=== PATIENT | male | born 1955 | race Caucasian/White ===

== ENCOUNTER → 2016-11-01 | Outpatient (CLI) | payer MEDICARE, OTHER ==
[2016-11-01 08:54] LABS: ALANINE AMINOTRANSFERASE 31 U/L (21-72); ALBUMIN 4.1 g/dL (3.5-5.0); ALKALINE PHOSPHATASE 68 U/L (38-126); ASPARTATE AMINO TRANSFERASE 20 U/L (17-59); BILIRUBIN,DIRECT 0.3 mg/dL (0.0-0.4); BILIRUBIN,TOTAL 1.2 mg/dL (0.2-1.3); TOTAL PROTEIN 6.6 g/dL (6.3-8.2)
== END ==
LOC: OD 07:35
PROVIDERS: ATTEND Internal Medicine Cardiovascular Disease
DX: R94.5 Abnormal results of liver function studies (principal)
CPT/HCPCS: 36415; 80076

== ENCOUNTER 2016-11-27 12:02 | Emergency (ER) | payer OTHER, MEDICARE ==
--- NOTE | 2016-11-27 15:01 | ER Document Report ---
HPI - HPI Patient complains to provider of: fall, rib pain Onset: Other - sunday, two days ago Onset/Duration: Sudden Quality of pain: Achy, Sharp Pain Level: 4 Exacerbated by: Deep breathing Relieved by: Remaining still Similar symptoms previously: No Recently seen / treated by doctor: No - CARDIOVASCULAR Cardiovascular: DENIES: Chest pain - DERM Skin Color: Normal Past Medical History - Social History Smoking Status: Never Smoker Chew tobacco use (# tins/day): No Frequency of alcohol use: Social Drug Abuse: None Family History: Reviewed & Not Pertinent Patient has suicidal ideation: No Patient has homicidal ideation: No - Past Medical History Cardiac Medical History: Reports: Hx Hypertension Renal/ Medical History: Reports: Hx Kidney Stones. Denies: Hx Peritoneal Dialysis Past Surgical History: Reports: Hx Appendectomy, Hx Orthopedic Surgery - Immunizations Hx Diphtheria, Pertussis, Tetanus Vaccination: Yes Vertical Provider Document - CONSTITUTIONAL Agree With Documented VS: Yes Exam Limitations: No Limitations General Appearance: WD/WN, No Apparent Distress - INFECTION CONTROL TRAVEL OUTSIDE OF THE [place] IN LAST 30 DAYS: No - HEENT HEENT: Atraumatic, Normocephalic - NECK Neck: Normal Inspection, Other - Full range of motion no spinous process tenderness, paraspinous muscle tenderness, no evidence of deformities or step- offs. - RESPIRATORY Respiratory: Breath Sounds Normal, No Respiratory Distress. negative: Chest Non -Tender - Tender over the anterior aspect of the ribs underlying the left breast area no evidence of crepitus, flail chest. O2 Sat by Pulse Oximetry: 97 - CARDIOVASCULAR Cardiovascular: Regular Rate, Regular Rhythm, No Murmur - MUSCULOSKELETAL/EXTREMETIES Musculoskeletal/Extremeties: MAEW, FROM, Non-Tender, No Edema - NEURO Level of Consciousness: Awake, Alert, Appropriate - DERM Integumentary: Warm, Dry, No Rash. negative: Laceration Course - Re-evaluation Re-evalutation: 11/27/16 16:50 Patient is a 61-year-old male who is hemodynamic stable, no acute distress and afebrile. X-ray shows 2 nondisplaced fractures of the seventh and eighth rib. Patient educated on incentive spirometry and told to follow-up with his primary care physician. - Vital Signs Vital signs: Temp Pulse Resp BP Pulse Ox 98.6 F 66 20 126/79 H 97 11/27/16 12:16 11/27/16 12:16 11/27/16 12:16 11/27/16 12:16 11/27/16 12:16 - Diagnostic Test Radiology reviewed: Image reviewed, Reports reviewed Discharge - Discharge Clinical Impression: Rib fractures Qualifiers: Encounter type: initial encounter Rib fracture type: multiple ribs Fracture type: closed Laterality: left Qualified Code(s): S22.42XA - Multiple fractures of ribs, left side, initial encounter for closed fracture Condition: Good Disposition: HOME, SELF-CARE Instructions: Ice Packs ([facility]), Warm Packs ([facility]), Rib Injuries and Fractures ( [facility]) Additional Instructions: How to use the incentive spirometer Sit on the edge of your bed if possible, or sit up as far as you can in bed. Hold the incentive spirometer in an upright position. Place the mouthpiece in your mouth and seal your lips tightly around it. Breathe in slowly and as deeply as possible. Notice the yellow piston rising toward the top of the column. The yellow indicator should reach the blue outlined area. Hold your breath as long as possible. Then exhale slowly and allow the piston to fall to the bottom of the column. Rest for a few seconds and repeat steps one to five at least 10 times every hour. Position the yellow indicator on the left side of the spirometer to show your best effort. Use the indicator as a goal to work toward during each slow deep breath. After each set of 10 deep breaths, cough to be sure your lungs are clear. If you have an incision, support your incision when coughing by placing a pillow firmly against it. Once you are able to get out of bed safely, take frequent walks and practice the cough. Prescriptions: Hydrocodone/Acetaminophen [[place] 5-325 Tablet] 1 each PO Q6HP PRN #20 tablet PRN Reason: Ibuprofen [Motrin 800 mg Tablet] 800 mg PO Q8H PRN #30 tab PRN Reason: Referrals: JEISON SANDHU MD [Primary Care Provider] - Follow up as needed
--- NOTE | 2016-11-27 15:12 | RADIOLOGY REPORT (SQ) ---
EXAM DESCRIPTION: RIBS LEFT W/PA CHEST COMPLETED DATE/TIME: 11/27/2016 2:53 pm REASON FOR STUDY: fall, rib pain COMPARISON: None. TECHNIQUE: Frontal view of the chest and additional views of the left ribs acquired. NUMBER OF VIEWS: Four views LIMITATIONS: None. FINDINGS: FRONTAL CXR: No pneumothorax. No pleural effusion. No atelectasis or infiltrates. RIBS: Nondisplaced fractures of the 7th and 8th ribs are suggested. OTHER: No other significant finding. IMPRESSION: There appear to be nondisplaced fractures of the anterior left 7th and 8th ribs. COMMENT: SITE OF TRAUMA/COMPLAINT MARKED/STAMP COMPLETED: NO. TECHNICAL DOCUMENTATION: JOB ID: [id number] [employer] All Rights Reserved
[2016-11-27] MEDS ORDERED: HYDROCODONE/ACETAMINOPHEN 5-325 MG TABLET PO ONE (15:39)
[2016-11-27 15:55] VITALS: BP 135/89
== END 2016-11-27 15:55 | disposition home or self-care (01) ==
LOC: ER 12:02
DX: S22.42XA Multiple fractures of ribs, left side, initial encounter for closed fracture (principal); R07.81 Pleurodynia; W19.XXXA Unspecified fall, initial encounter; I10 Essential (primary) hypertension
CPT/HCPCS: 99283

== ENCOUNTER → 2017-02-06 | Outpatient (CLI) | payer MEDICARE, OTHER ==
[2017-02-06 09:31] LABS: ALANINE AMINOTRANSFERASE 36 U/L (21-72); ALBUMIN 4.3 g/dL (3.5-5.0); ALKALINE PHOSPHATASE 77 U/L (38-126); ANION GAP 10 (5-19); ASPARTATE AMINO TRANSFERASE 25 U/L (17-59); BILIRUBIN,DIRECT 0.3 mg/dL (0.0-0.4); BLOOD UREA NITROGEN 14 mg/dL (7-20); CALCIUM 10.5 mg/dL (8.4-10.2); CARBON DIOXIDE 29 mmol/L (22-30); CHLORIDE 99 mmol/L (98-107); CHOLESTEROL 123.17 mg/dL (0-200); CREATININE RESULT 0.91 mg/dL (0.52-1.25); Direct HDL 63 mg/dL (>40); GLUCOSE 107 mg/dL (75-110); MAGNESIUM 2.1 mg/dL (1.6-2.3); POTASSIUM 4.2 mmol/L (3.6-5.0); SODIUM 137.8 mmol/L (137-145); TRIGLYCERIDES 86 mg/dL (<150)
[2017-02-06 09:41] LABS: DIRECT LDL 45 mg/dL (<100)
== END ==
LOC: OD 08:17
PROVIDERS: ATTEND Internal Medicine Cardiovascular Disease
DX: R94.5 Abnormal results of liver function studies (principal); Z79.899 Other long term (current) drug therapy; E78.00 Pure hypercholesterolemia, unspecified; E55.9 Vitamin D deficiency, unspecified
CPT/HCPCS: 36415; 80048; 80061; 80076; 82306; 83735

== ENCOUNTER → 2017-05-03 | Outpatient (CLI) | payer MEDICARE, OTHER ==
[2017-05-03 11:31] LABS: ALANINE AMINOTRANSFERASE 53 U/L (21-72); ALBUMIN 4.3 g/dL (3.5-5.0); ALKALINE PHOSPHATASE 64 U/L (38-126); ANION GAP 13 (5-19); ASPARTATE AMINO TRANSFERASE 33 U/L (17-59); BILIRUBIN,DIRECT 0.6 mg/dL (0.0-0.4); BILIRUBIN,TOTAL 1.2 mg/dL (0.2-1.3); BLOOD UREA NITROGEN 13 mg/dL (7-20); CARBON DIOXIDE 28 mmol/L (22-30); CHLORIDE 97 mmol/L (98-107); CREATININE RESULT 0.85 mg/dL (0.52-1.25); GLUCOSE 101 mg/dL (75-110); POTASSIUM 4.1 mmol/L (3.6-5.0); SODIUM 138.3 mmol/L (137-145); TOTAL PROTEIN 6.7 g/dL (6.3-8.2)
== END ==
LOC: OD 09:10
PROVIDERS: ATTEND Internal Medicine Cardiovascular Disease
DX: N18.3 Chronic kidney disease, stage 3 (moderate) (principal); R94.5 Abnormal results of liver function studies
CPT/HCPCS: 36415; 80048; 80076

== ENCOUNTER → 2017-08-03 | Outpatient (CLI) | payer MEDICARE, OTHER ==
[2017-08-03 09:32] LABS: ALANINE AMINOTRANSFERASE 39 U/L (21-72); ALBUMIN 4.5 g/dL (3.5-5.0); ALKALINE PHOSPHATASE 64 U/L (38-126); ANION GAP 11 (5-19); ASPARTATE AMINO TRANSFERASE 24 U/L (17-59); BILIRUBIN,DIRECT 0.2 mg/dL (0.0-0.4); BILIRUBIN,TOTAL 0.8 mg/dL (0.2-1.3); BLOOD UREA NITROGEN 16 mg/dL (7-20); CALCIUM 10.6 mg/dL (8.4-10.2); CARBON DIOXIDE 28 mmol/L (22-30); CHLORIDE 100 mmol/L (98-107); CHOLESTEROL 112.94 mg/dL (0-200); GLUCOSE 102 mg/dL (75-110); POTASSIUM 4.8 mmol/L (3.6-5.0); SODIUM 139.1 mmol/L (137-145); TOTAL PROTEIN 6.6 g/dL (6.3-8.2); TRIGLYCERIDES 68 mg/dL (<150)
[2017-08-03 09:43] LABS: DIRECT LDL 47 mg/dL (<100)
== END ==
LOC: OD 08:25
PROVIDERS: ATTEND Internal Medicine Cardiovascular Disease
DX: N18.3 Chronic kidney disease, stage 3 (moderate) (principal); R94.5 Abnormal results of liver function studies; E78.00 Pure hypercholesterolemia, unspecified
CPT/HCPCS: 36415; 80048; 80061; 80076

== ENCOUNTER → 2017-11-12 | Outpatient (CLI) | payer MEDICARE, OTHER ==
[2017-11-12 09:04] LABS: BLOOD UREA NITROGEN 21 mg/dL (7-20); GLUCOSE 109 mg/dL (75-110)
[2017-11-12 09:05] LABS: ANION GAP 12 (5-19); CARBON DIOXIDE 27 mmol/L (22-30); CHLORIDE 104 mmol/L (98-107); POTASSIUM 4.8 mmol/L (3.6-5.0); SODIUM 142.8 mmol/L (137-145); URIC ACID 6.8 mg/dL (3.5-8.5)
== END ==
LOC: OD 07:10
PROVIDERS: ATTEND Internal Medicine Cardiovascular Disease
DX: E83.42 Hypomagnesemia (principal); N18.3 Chronic kidney disease, stage 3 (moderate); M10.9 Gout, unspecified
CPT/HCPCS: 36415; 80048; 83735; 84550

== ENCOUNTER → 2018-01-25 | Outpatient (CLI) | payer MEDICARE, OTHER ==
[2018-01-25 08:32] LABS: ANION GAP 13 (5-19); BLOOD UREA NITROGEN 20 mg/dL (7-20); CALCIUM 10.2 mg/dL (8.4-10.2); CARBON DIOXIDE 29 mmol/L (22-30); CHLORIDE 100 mmol/L (98-107); GLUCOSE 110 mg/dL (75-110); POTASSIUM 4.7 mmol/L (3.6-5.0); URIC ACID 5.7 mg/dL (3.5-8.5)
== END ==
LOC: OD 07:08
PROVIDERS: ATTEND Internal Medicine Cardiovascular Disease
DX: I12.9 Hypertensive chronic kidney disease with stage 1 through stage 4 chronic kidney disease, or unspecified chronic kidney disease (principal); N18.3 Chronic kidney disease, stage 3 (moderate); M10.9 Gout, unspecified
CPT/HCPCS: 36415; 80048; 84550

== ENCOUNTER → 2018-05-17 | Outpatient (CLI) | payer MEDICARE, OTHER ==
[2018-05-17 08:49] LABS: ALANINE AMINOTRANSFERASE 27 U/L (21-72); ALBUMIN 4.4 g/dL (3.5-5.0); ALKALINE PHOSPHATASE 67 U/L (38-126); ANION GAP 9 (5-19); ASPARTATE AMINO TRANSFERASE 24 U/L (17-59); BILIRUBIN,DIRECT 0.4 mg/dL (0.0-0.4); BILIRUBIN,TOTAL 1.2 mg/dL (0.2-1.3); BLOOD UREA NITROGEN 14 mg/dL (7-20); CALCIUM 10.2 mg/dL (8.4-10.2); CARBON DIOXIDE 32 mmol/L (22-30); CHLORIDE 99 mmol/L (98-107); CHOLESTEROL 101.73 mg/dL (0-200); GLUCOSE 106 mg/dL (75-110); POTASSIUM 4.7 mmol/L (3.6-5.0); SODIUM 140.4 mmol/L (137-145); TOTAL PROTEIN 7.1 g/dL (6.3-8.2); TRIGLYCERIDES 57 mg/dL (<150); URIC ACID 5.1 mg/dL (3.5-8.5)
[2018-05-17 09:00] LABS: DIRECT LDL 56 mg/dL (<100)
== END ==
LOC: OD 07:18
PROVIDERS: ATTEND Internal Medicine Cardiovascular Disease
DX: M10.9 Gout, unspecified (principal); I12.9 Hypertensive chronic kidney disease with stage 1 through stage 4 chronic kidney disease, or unspecified chronic kidney disease; N18.3 Chronic kidney disease, stage 3 (moderate); E78.00 Pure hypercholesterolemia, unspecified; E83.42 Hypomagnesemia; Z79.899 Other long term (current) drug therapy
CPT/HCPCS: 36415; 80048; 80061; 80076; 83735; 84550

== ENCOUNTER → 2018-11-14 | Outpatient (CLI) | payer MEDICARE, OTHER ==
[2018-11-14 08:04] LABS: HEMATOCRIT 49.1 % (37.9-51.0); HEMOGLOBIN 16.9 g/dL (13.5-17.0); MEAN CORPUSCULAR HEMOGLOBIN 35.2 pg (27.0-33.4); MEAN CORPUSCULAR HGB CONC 34.4 g/dL (32.0-36.0); MEAN CORPUSCULAR VOLUME 102 fl (80-97); PLATELET COUNT 152 10^3/uL (150-450); RED CELL DISTRIBUTION WIDTH 13.3 % (11.5-14.0)
[2018-11-14 08:24] LABS: ALANINE AMINOTRANSFERASE 33 U/L (21-72); ALBUMIN 4.1 g/dL (3.5-5.0); ALKALINE PHOSPHATASE 69 U/L (38-126); ANION GAP 7 (5-19); ASPARTATE AMINO TRANSFERASE 20 U/L (17-59); BILIRUBIN,DIRECT 0.2 mg/dL (0.0-0.4); BILIRUBIN,TOTAL 1.2 mg/dL (0.2-1.3); BLOOD UREA NITROGEN 15 mg/dL (7-20); CALCIUM 9.7 mg/dL (8.4-10.2); CARBON DIOXIDE 30 mmol/L (22-30); CHLORIDE 101 mmol/L (98-107); GLUCOSE 118 mg/dL (75-110); POTASSIUM 4.4 mmol/L (3.6-5.0); SODIUM 137.6 mmol/L (137-145); TOTAL PROTEIN 6.3 g/dL (6.3-8.2); TRIGLYCERIDES 68 mg/dL (<150); URIC ACID 4.6 mg/dL (3.5-8.5)
[2018-11-14 08:36] LABS: DIRECT LDL 46 mg/dL (<100)
== END ==
LOC: LAB 07:47
PROVIDERS: ATTEND Internal Medicine Cardiovascular Disease
DX: E83.42 Hypomagnesemia (principal); I10 Essential (primary) hypertension; E78.00 Pure hypercholesterolemia, unspecified; M10.9 Gout, unspecified; Z79.899 Other long term (current) drug therapy
CPT/HCPCS: 36415; 80048; 80061; 80076; 83735; 84550; 85027

== ENCOUNTER → 2019-02-14 | Outpatient (CLI) | payer MEDICARE, OTHER ==
[2019-02-14 07:39] LABS: ALBUMIN 4.3 g/dL (3.5-5.0); ALKALINE PHOSPHATASE 82 U/L (38-126); ANION GAP 11 (5-19); ASPARTATE AMINO TRANSFERASE 37 U/L (17-59); BILIRUBIN,DIRECT 0.2 mg/dL (0.0-0.4); BILIRUBIN,TOTAL 0.8 mg/dL (0.2-1.3); BLOOD UREA NITROGEN 13 mg/dL (7-20); CALCIUM 9.9 mg/dL (8.4-10.2); CARBON DIOXIDE 28 mmol/L (22-30); CHLORIDE 99 mmol/L (98-107); CHOLESTEROL 96.71 mg/dL (0-200); GLUCOSE 114 mg/dL (75-110); TOTAL PROTEIN 6.8 g/dL (6.3-8.2); TRIGLYCERIDES 77 mg/dL (<150)
[2019-02-14 07:49] LABS: DIRECT LDL 46 mg/dL (<100)
== END ==
LOC: LAB 06:39
PROVIDERS: ATTEND Internal Medicine Cardiovascular Disease
DX: E83.42 Hypomagnesemia (principal); E78.00 Pure hypercholesterolemia, unspecified; I10 Essential (primary) hypertension; Z79.899 Other long term (current) drug therapy
CPT/HCPCS: 36415; 80048; 80061; 80076; 83735

== ENCOUNTER → 2019-05-15 | Outpatient (CLI) | payer MEDICARE, OTHER ==
[2019-05-15 06:27] LABS: ALBUMIN 4.3 g/dL (3.5-5.0); ALKALINE PHOSPHATASE 76 U/L (38-126); ANION GAP 9 (5-19); ASPARTATE AMINO TRANSFERASE 21 U/L (17-59); BILIRUBIN,DIRECT 0.3 mg/dL (0.0-0.4); BILIRUBIN,TOTAL 1.1 mg/dL (0.2-1.3); BLOOD UREA NITROGEN 17 mg/dL (7-20); CARBON DIOXIDE 30 mmol/L (22-30); CHLORIDE 101 mmol/L (98-107); GLUCOSE 108 mg/dL (75-110); POTASSIUM 4.3 mmol/L (3.6-5.0); TOTAL PROTEIN 7.2 g/dL (6.3-8.2)
== END ==
LOC: LAB 05:16
PROVIDERS: ATTEND Internal Medicine Cardiovascular Disease
DX: N18.3 Chronic kidney disease, stage 3 (moderate) (principal); R94.5 Abnormal results of liver function studies; R73.01 Impaired fasting glucose
CPT/HCPCS: 36415; 80048; 80076; 83036

== ENCOUNTER → 2019-08-19 | Outpatient (CLI) | payer MEDICARE, OTHER ==
[2019-08-19 06:18] LABS: ALBUMIN 4.2 g/dL (3.5-5.0); ALKALINE PHOSPHATASE 66 U/L (38-126); ANION GAP 10 (5-19); ASPARTATE AMINO TRANSFERASE 25 U/L (17-59); BILIRUBIN,DIRECT 0.2 mg/dL (0.0-0.4); BILIRUBIN,TOTAL 1.3 mg/dL (0.2-1.3); BLOOD UREA NITROGEN 18 mg/dL (7-20); CALCIUM 9.7 mg/dL (8.4-10.2); CARBON DIOXIDE 30 mmol/L (22-30); CHLORIDE 98 mmol/L (98-107); CHOLESTEROL 108.47 mg/dL (0-200); GLUCOSE 116 mg/dL (75-110); POTASSIUM 3.9 mmol/L (3.6-5.0); TRIGLYCERIDES 93 mg/dL (<150)
[2019-08-19 06:28] LABS: DIRECT LDL 38 mg/dL (<100)
== END ==
LOC: LAB 05:43
PROVIDERS: ATTEND Internal Medicine Cardiovascular Disease
DX: E78.00 Pure hypercholesterolemia, unspecified (principal); E83.42 Hypomagnesemia; R94.5 Abnormal results of liver function studies; Z79.899 Other long term (current) drug therapy
CPT/HCPCS: 36415; 80048; 80061; 80076; 83735

== ENCOUNTER → 2019-11-18 | Outpatient (CLI) | payer MEDICARE, OTHER ==
[2019-11-18 09:44] LABS: ALBUMIN 4.4 g/dL (3.5-5.0); ALKALINE PHOSPHATASE 67 U/L (38-126); ANION GAP 11 (5-19); ASPARTATE AMINO TRANSFERASE 33 U/L (17-59); BILIRUBIN,DIRECT 0.2 mg/dL (0.0-0.4); BILIRUBIN,TOTAL 1.2 mg/dL (0.2-1.3); BLOOD UREA NITROGEN 20 mg/dL (7-20); CALCIUM 10.1 mg/dL (8.4-10.2); CARBON DIOXIDE 29 mmol/L (22-30); CHLORIDE 95 mmol/L (98-107); CHOLESTEROL 107.09 mg/dL (0-200); GLUCOSE 119 mg/dL (75-110); TOTAL PROTEIN 7.1 g/dL (6.3-8.2); TRIGLYCERIDES 78 mg/dL (<150); URIC ACID 4.4 mg/dL (3.5-8.5)
[2019-11-18 09:55] LABS: DIRECT LDL 32 mg/dL (<100)
== END ==
LOC: OD 07:04
PROVIDERS: ATTEND Physician Assistant
DX: E83.42 Hypomagnesemia (principal); E78.00 Pure hypercholesterolemia, unspecified; R94.5 Abnormal results of liver function studies; I10 Essential (primary) hypertension; M10.9 Gout, unspecified; Z79.899 Other long term (current) drug therapy
CPT/HCPCS: 36415; 80048; 80061; 80076; 83735; 84550

== ENCOUNTER → 2020-02-19 | Outpatient (CLI) | payer MEDICARE, OTHER ==
[2020-02-19 08:55] LABS: ALBUMIN 4.7 g/dL (3.5-5.0); ALKALINE PHOSPHATASE 68 U/L (38-126); ANION GAP 12 (5-19); ASPARTATE AMINO TRANSFERASE 50 U/L (17-59); BILIRUBIN,DIRECT 0.4 mg/dL (0.0-0.4); BILIRUBIN,TOTAL 1.6 mg/dL (0.2-1.3); BLOOD UREA NITROGEN 20 mg/dL (7-20); CALCIUM 10.2 mg/dL (8.4-10.2); CARBON DIOXIDE 30 mmol/L (22-30); CHLORIDE 95 mmol/L (98-107); CHOLESTEROL 111.12 mg/dL (0-200); GLUCOSE 112 mg/dL (75-110); POTASSIUM 4.3 mmol/L (3.6-5.0); TOTAL PROTEIN 7.5 g/dL (6.3-8.2); TRIGLYCERIDES 47 mg/dL (<150); URIC ACID 4.3 mg/dL (3.5-8.5)
[2020-02-19 09:08] LABS: DIRECT LDL < 30 mg/dL (<100)
== END ==
LOC: OD 07:42
PROVIDERS: ATTEND Physician Assistant
DX: M10.9 Gout, unspecified (principal); E83.42 Hypomagnesemia; E78.00 Pure hypercholesterolemia, unspecified; I10 Essential (primary) hypertension; R94.5 Abnormal results of liver function studies; Z79.899 Other long term (current) drug therapy
CPT/HCPCS: 36415; 80048; 80061; 80076; 83735; 84550

== ENCOUNTER → 2020-03-26 | Outpatient (CLI) | payer MEDICARE, OTHER ==
[2020-03-26 09:06] LABS: ALBUMIN 4.1 g/dL (3.5-5.0); ALKALINE PHOSPHATASE 64 U/L (38-126); ASPARTATE AMINO TRANSFERASE 32 U/L (17-59); BILIRUBIN,DIRECT 0.5 mg/dL (0.0-0.4); BILIRUBIN,TOTAL 1.3 mg/dL (0.2-1.3); TOTAL PROTEIN 6.3 g/dL (6.3-8.2)
== END ==
LOC: OD 07:07
PROVIDERS: ATTEND Physician Assistant
DX: R94.5 Abnormal results of liver function studies (principal)
CPT/HCPCS: 36415; 80076

== ENCOUNTER → 2020-06-24 | Outpatient (CLI) | payer MEDICARE, OTHER ==
--- OUTSIDE RECORDS SUMMARY | 2020-06-24 07:11 | XMS REPORT ---
:1955 Author Organization [facility] Address [address] [address] Care Team Providers Name Role Phone Nissa BLUNT PA-C Attending Clinician Unavailable Allergies, Adverse Reactions, Alerts Allergy Name Allergy Status Severity Reaction(s) Onset Inactive Treat ing Comments Type Date Date Clinician Horse/Equine Allergy to Active Unknown Containing Substance Products ([id number]) Medications This patient has no known medications. Problems This patient has no known problems. Procedures This patient has no known procedures. Results Test Description Test Time Test Comments Text Results Atomic Results Result Comments CAT 2017-07-[address] [id number] SCAN 12:55:00 ---- Patient: DIANELYS CHEUNG : 1955 Sex: M Address: [address] [address] Unit #: [id number] REQ SEQ #: [id number] Location: [facility] Room #: Ordering: VINOD BLUNT PA-C Diagnosis: SEVERE BACK PAIN/UNABLE TO WALK ---- Indication: Severe back pain . Findings: Contiguous axial images of the abdomen and pelvis were obtained without the use of intravenous or oral contrast (utilizing a madhuri al stone protocol). Please note that without intravenous contrast, the sensitivity for solid visceral organ masses is diminished. Coronary artery calcifica tions. The liver and spleen and pancreas Are normal. The pancreas is normal. No abdominal aortic aneurysm. 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 The lung bases are normal. No adenopathy. No suspicious osseous lesions. No compression fracture. The spinal canal is well aligned. IMPRESSION: Mild small bowel ileus in the left upper quadrant associated with mild induration of the small bowel mesentery. This finding is nonspecific and poorly assessed without oral contrast. If repeat imaging is performed recommend CT with IV and oral contrast. Moderate prostate gland enlargement. Bilateral bladder divertic kiersten incidentally noted. No hydronephrosis. Nonobstructing renal stone within the right kidney measuring 3 mm in diameter. No bowel obstruction or intraperitoneal abscess. Prostate gland enlargement. Final report electronically signed by: Nikkie Holliday MD Signed by: NIKKIE HOLLIDAY MD [id number] cc: VINOD BLUNT PA-C, DOUGLAS J MD White Blood Count 2017-07-07 11:42:00 Test Item Value Reference Range Comments Blood leukocytes automated count (number/volume) (test code = 66 90-2) Pending Red Blood [id number] 11:42:00 Test Item Value Reference Range Comments Blood erythrocytes automated count (number/volume) Pending (test code = 789-8) [id number] 11:42:00 Test Item Value Reference Range Comments Blood hemoglobin measurement (mass/volume) (test Pending code = 718-7) [id number] 11:42:00 Test Item Value Reference Range Comments Automated blood hematocrit (volume fraction) (test Pending code = 4544-3) Mean Corpuscular [id number] 11:42:00 Test Item Value Reference Range Comments Automated erythrocyte mean corpuscular volume (test Pending code = 787-2) Mean Corpuscular [id number] 11:42:00 Test Item Value Reference Range Comments Automated erythrocyte mean corpuscular hemoglobin Pending (mass per erythrocyte) (test code = 785-6) Mean Corpuscular Hemoglobin [id number] 11:42:00 Test Item Value Reference Range Comments Automated erythrocyte mean corpuscular hemoglobin Pending concentration measurement (mass/volume) (test code = 786-4) Red Cell Distribution [id number] 11:42:00 Test Item Value Reference Range Comments Automated erythrocyte distribution width ratio (test Pending code = 788-0) Platelet [id number] 11:42:00 Test Item Value Reference Range Comments Automated blood platelet count (count/volume) (test Pending code = 777-3) Mean Platelet [id number] 11:42:00 Test Item Value Reference Range Comments Automated blood platelet mean volume measurement Pending (test code = 76961-9) Neutrophils (%) (Auto)2017-07-07 11:42:00 Test Item Value Reference Range Comments Automated blood neutrophil count as percentage of Pending total leukocytes (test code = 770-8) Lymphocytes (%) (Auto)2017-07-07 11:42:00 Test Item Value Reference Range Comments Automated blood lymphocyte count as percentage of Pending total leukocytes (test code = 736-9) Neutrophils # (Auto)2017-07-07 11:42:00 Test Item Value Reference Range Comments Blood neutrophils automated count (number/volume) Pending (test code = 751-8) Lymphocytes # (Auto)2017-07-07 11:42:00 Test Item Value Reference Range Comments Automated blood lymphocyte count (number/volume) Pending (test code = 731-0) Monocytes # (Auto)2017-07-07 11:42:00 Test Item Value Reference Range Comments Blood monocytes automated count (number/volume) Pending (test code = 742-7) Sodium [id number] 11:42:00 Test Item Value Reference Range Comments Sodium blood (test code = 482503473) Pending Potassium [id number] 11:42:00 Test Item Value Reference Range Comments Potassium blood (test code = 664013202) Pending Chloride Gbipc8471-30-79 11:42:00 Test Item Value Reference Range Comments Chloride blood (test code = 955379011) Pending Carbon Dioxide [id number] 11:42:00 Test Item Value Reference Range Comments Carbon dioxide (test code = 09021784) Pending Glucose Baypv7424-70-52 11:42:00 Test Item Value Reference Range Comments Glucose blood (test code = 52055548) Pending Blood Urea Ntktcnwx6406-73-02 11:42:00 Test Item Value Reference Range Comments BUN (test code = 685146750) Pending Lncsskcxno1198-29-68 11:42:00 Test Item Value Reference Range Comments Creatinine blood (test code = 766282866) Pending Anion Oje2325-95-48 11:42:00 Test Item Value Reference Range Comments Anion gap measurement (test code = 64623988) Pending Calcium Gtguf7891-91-10 11:42:00 Test Item Value Reference Range Comments Calcium (test code = 64408347) Pending Encounters Start End Encounter Admission Attending Care Care Encounter Date/Time Date/Time Type Type Clinicians Facility Department ID 2017-07-07 2017-07-07 Emergency ED [facility] [id number] 10:31:00 11:51:00 00 Immunizations Ordered Immunization Filled Immunization Date Status Commen ts Refusal Reason Name Name Vaccination Unknown Completed Payers Payer Name Policy Type Policy Number Effective Date Expiration D ate Social History This patient has no known social history. Vital Signs Vital Name Observation Time Observation Value Comments WEIGHT 2017-07-07 10:31:00 86.3000 kg HEIGHT 2017-07-07 10:31:00 175.645833 cm
[2020-06-24 09:05] LABS: ALBUMIN 4.5 g/dL (3.5-5.0); ALKALINE PHOSPHATASE 69 U/L (38-126); ANION GAP 11 (5-19); ASPARTATE AMINO TRANSFERASE 26 U/L (17-59); BILIRUBIN,DIRECT 0.2 mg/dL (0.0-0.4); BILIRUBIN,TOTAL 1.3 mg/dL (0.2-1.3); BLOOD UREA NITROGEN 14 mg/dL (7-20); CARBON DIOXIDE 28 mmol/L (22-30); CHLORIDE 97 mmol/L (98-107); CHOLESTEROL 112.73 mg/dL (0-200); GLUCOSE 107 mg/dL (75-110); POTASSIUM 4.2 mmol/L (3.6-5.0); TRIGLYCERIDES 74 mg/dL (<150)
[2020-06-24 09:18] LABS: DIRECT LDL 43 mg/dL (<100)
== END ==
LOC: OD 07:08
PROVIDERS: ATTEND Internal Medicine Cardiovascular Disease
DX: E83.42 Hypomagnesemia (principal); E78.00 Pure hypercholesterolemia, unspecified; I10 Essential (primary) hypertension; Z79.899 Other long term (current) drug therapy
CPT/HCPCS: 36415; 80048; 80061; 80076; 83735